=== PATIENT | female | born 1945 | race Caucasian/White ===

== ENCOUNTER → 2017-09-08 | Outpatient (CLI) | payer MEDICARE, OTHER ==
[~2017-09-08] MED LIST: B CO1CAP4 PO; CITA10TA68 PO; DSS100 PO; DULO20CA30 PO; FOLI1 PO; GABA-531 PO; LEVO50 PO; OMEP20 PO; SEVEC800 PO; [UNRECOGNIZED DRUG - CODE] SQ
== END | disposition home or self-care (01) ==
LOC: LABPV 13:08
PROVIDERS: ATTEND Physical Medicine & Rehabilitation
DX: I12.0 Hypertensive chronic kidney disease with stage 5 chronic kidney disease or end stage renal disease (principal); N18.6 End stage renal disease; Z79.891 Long term (current) use of opiate analgesic
CPT/HCPCS: 80307

== ENCOUNTER 2018-09-05 13:50 | Inpatient (IN) | payer MEDICARE, MEDICAID ==
[~2018-09-05] VITALS: Ht 162.6 cm; Wt 59.9 kg
[2018-09-05] MEDS ORDERED: PARO10TA89 PO (14:08)
[2018-09-05] MEDS ORDERED: HYDR2 PO (14:08)
[2018-09-05] MEDS ORDERED: Fentanyl Patch (14:08)
[2018-09-05] MEDS ORDERED: LANT500 PO (14:08)
[2018-09-05] MEDS ORDERED: LEVO100 PO (14:08)
[2018-09-05 14:57] LABS: EOSINOPHILS % (AUTO) 1.2 % (1.0-6.0); HEMATOCRIT 34.8 % (36-46); HEMOGLOBIN 11.5 g/dL (12.0-16.0); LYMPHOCYTES # (AUTO) 0.8 K/uL (1.0-4.8); LYMPHOCYTES % (AUTO) 22.3 % (22.0-44.0); MEAN CORPUSCULAR HEMOGLOBIN 31.2 pg (26.0-34.0); MEAN CORPUSCULAR HGB CONC 33.1 G/dL (31.0-37.0); MEAN CORPUSCULAR VOLUME 94 fL (80-100); MONOCYTES # (AUTO) 0.3 K/uL (0.1-1.0); MONOCYTES % (AUTO) 9.6 % (2.0-9.0); NEUTROPHILS # (AUTO) 2.3 K/uL (1.8-7.7); NEUTROPHILS % (AUTO) 65.9 % (40.0-70.0); PLATELET COUNT (AUTO) 136 K/uL (150-450); RED CELL DISTRIBUTION WIDTH 15.1 % (11.5-14.5)
[2018-09-05 15:08] LABS: ANION GAP 9 mmol/L (8-16); CALCIUM, TOTAL 9.9 mg/dL (8.8-10.5); CARBON DIOXIDE 31 mmol/L (22-29); CHLORIDE 100 mmol/L (98-107); CREATININE 4.01 mg/dL (0.60-1.30); GLOMERULAR FILTR. RATE CALC 11 mL/min (>60); GLUCOSE,RANDOM 149 mg/dL (70-110); SODIUM SERUM 140 mmol/L (136-145); UREA NITROGEN, BLOOD 14 mg/dL (7-18)
[2018-09-05 15:13] LABS: ALANINE AMINOTRANSFERASE 15 U/L (12-78); ALBUMIN 3.5 g/dL (3.4-5.0); ALKALINE PHOSPHATASE 70 U/L (46-116); ASPARTATE AMINOTRANSFERASE 23 U/L (15-37); BILIRUBIN,TOTAL 0.5 mg/dL (0.1-1.0); TOTAL PROTEIN, SERUM 6.8 g/dL (6.4-8.2)
[2018-09-05 15:43] LABS: PLATELET MORPHOLOGY COMMENT DECREASED
[2018-09-05] MEDS ORDERED: HALOPERIDOL 5 MG TABLET PO PRN (17:00)
[2018-09-05] MEDS: PARoxetine HCL 20 MG TABLET PO SCH (22:16)
[2018-09-06] MEDS: ZOLPIDEM TARTRATE 10 MG TABLET PO PRN ×2 (00:56→21:00)
[2018-09-06 01:00] VITALS: BP 157/67
[2018-09-06] MEDS ORDERED: CloNIDine HCL 0.1 MG TABLET PO PRN (06:45)
[2018-09-06] MEDS ORDERED: GuaiFENesin/D-METHORPHAN [SUGAR-FREE] 200-20MG/10 ML SYRUP UDCUP PO PRN (06:45)
[2018-09-06] MEDS ORDERED: ACETAMINOPHEN 325 MG TABLET PO PRN (06:45)
[2018-09-06] MEDS ORDERED: PETROLATUM,WHITE 71 GM JELLY TP PRN (06:45)
[2018-09-06] MEDS ORDERED: ONDANSETRON HCL 4 MG TABLET PO PRN (06:45)
[2018-09-06] MEDS ORDERED: NICOTINE 14 MG/24 HOUR PATCH TD PRN (06:45)
[2018-09-06] MEDS ORDERED: ALBUTEROL SULFATE HFA 90 MCG/PUFF 8 GM INHALER IH PRN (06:45)
[2018-09-06] MEDS ORDERED: LOPERAMIDE HCL 2 MG CAPSULE PO PRN (06:45)
[2018-09-06] MEDS ORDERED: MAGNESIUM HYDROXIDE SUSPENSION 30 ML UDCUP PO PRN (06:45)
[2018-09-06] MEDS ORDERED: MAG HYDROX/AL HYDROX/SIMETH ES 30 ML SUSPENSION UDCUP PO PRN (06:45)
[2018-09-06] MEDS: OMEPRAZOLE 20 MG CAPSULE PO SCH (09:07)
[2018-09-06] MEDS: LANTHANUM CARBONATE 500 MG CHEW TABLET PO SCH ×3 (09:08→16:39)
[2018-09-06 09:19] VITALS: BP 151/77
[2018-09-06 15:47] VITALS: BP 139/60
[2018-09-06] MEDS: IBUPROFEN 400 MG TABLET PO PRN (15:47)
[2018-09-06] MEDS: VITAMIN B COMP/VIT C/FOLIC ACID CAPSULE PO SCH (16:38)
[2018-09-06 17:00] VITALS: BP 139/60
[2018-09-06] MEDS: PARoxetine HCL 20 MG TABLET PO SCH (20:12)
[2018-09-07 00:04] VITALS: BP 129/73
[2018-09-07] MEDS: LORazepam 2 MG TABLET PO PRN ×3 (00:17→22:16)
[2018-09-07 06:48] LABS: BASOPHILS % (AUTO) 0.7 % (0.0-2.0); EOSINOPHILS % (AUTO) 3.1 % (1.0-6.0); HEMOGLOBIN 11.8 g/dL (12.0-16.0); LYMPHOCYTES # (AUTO) 1.4 K/uL (1.0-4.8); LYMPHOCYTES % (AUTO) 37.3 % (22.0-44.0); MEAN CORPUSCULAR HEMOGLOBIN 31.7 pg (26.0-34.0); MEAN CORPUSCULAR HGB CONC 33.8 G/dL (31.0-37.0); MEAN CORPUSCULAR VOLUME 94 fL (80-100); MONOCYTES # (AUTO) 0.5 K/uL (0.1-1.0); MONOCYTES % (AUTO) 13.2 % (2.0-9.0); NEUTROPHILS # (AUTO) 1.7 K/uL (1.8-7.7); NEUTROPHILS % (AUTO) 45.7 % (40.0-70.0); PLATELET COUNT (AUTO) 129 K/uL (150-450); RED BLOOD CELL COUNT(AUTO) 3.74 MIL/uL (4.00-5.20)
[2018-09-07 07:12] LABS: HEMOGLOBIN A1C 5.3 % (4.5-6.2)
[2018-09-07] MEDS: LEVOTHYROXINE SODIUM 100 MCG TABLET PO SCH (07:14)
[2018-09-07] MEDS: LANTHANUM CARBONATE 500 MG CHEW TABLET PO SCH ×3 (07:17→16:47)
[2018-09-07 07:21] LABS: ALBUMIN 3.3 g/dL (3.4-5.0); BILIRUBIN,TOTAL 0.5 mg/dL (0.1-1.0); CALCIUM, TOTAL 9.6 mg/dL (8.8-10.5); CHOL/HDL RATIO 1.9 (3.9-5.7); CREATININE 3.58 mg/dL (0.60-1.30); POTASSIUM 3.7 mmol/L (3.5-5.1); THYROID STIMULATING HORMONE 0.82 uIU/mL (0.36-3.74); TOTAL PROTEIN, SERUM 6.3 g/dL (6.4-8.2)
[2018-09-07] MEDS: VITAMIN B COMP/VIT C/FOLIC ACID CAPSULE PO SCH (08:34)
[2018-09-07] MEDS: OMEPRAZOLE 20 MG CAPSULE PO SCH (08:34)
[2018-09-07 08:49] VITALS: BP 154/75
[2018-09-07] MEDS ORDERED: VITAMIN B COMP/VIT C/FOLIC ACID CAPSULE PO SCH (09:00)
[2018-09-07 16:45] VITALS: BP 135/77
[2018-09-07] MEDS: FentaNYL 25 MCG/HOUR PATCH TD SCH (18:00)
[2018-09-07 20:19] VITALS: BP 118/53
[2018-09-07] MEDS: HYDROmorphone HCL 2 MG TABLET PO PRN (20:20)
[2018-09-07] MEDS: PARoxetine HCL 20 MG TABLET PO SCH (20:24)
[2018-09-08] VITALS (7 sets, daily range): BP systolic 93–124; BP diastolic 49–85
[2018-09-08] MEDS: ZOLPIDEM TARTRATE 10 MG TABLET PO PRN ×2 (00:21→22:52)
[2018-09-08] MEDS: LORazepam 2 MG TABLET PO PRN ×2 (05:39→12:52)
[2018-09-08] MEDS: LANTHANUM CARBONATE 500 MG CHEW TABLET PO SCH ×3 (09:07→17:24)
[2018-09-08] MEDS: OMEPRAZOLE 20 MG CAPSULE PO SCH (09:07)
[2018-09-08] MEDS: VITAMIN B COMP/VIT C/FOLIC ACID CAPSULE PO SCH (09:07)
[2018-09-08] MEDS: LEVOTHYROXINE SODIUM 100 MCG TABLET PO SCH (09:07)
[2018-09-08] MEDS: HYDROmorphone HCL 2 MG TABLET PO PRN ×2 (09:32→20:12)
[2018-09-08] MEDS: PARoxetine HCL 20 MG TABLET PO SCH (20:06)
[2018-09-09] MEDS: LORazepam 2 MG TABLET PO PRN ×2 (00:21→11:06)
[2018-09-09 00:24] VITALS: BP 102/58
[2018-09-09] MEDS: LEVOTHYROXINE SODIUM 100 MCG TABLET PO SCH (07:03)
[2018-09-09] MEDS: LANTHANUM CARBONATE 500 MG CHEW TABLET PO SCH ×3 (07:04→16:39)
[2018-09-09 08:16] VITALS: BP 106/50
[2018-09-09] MEDS: OMEPRAZOLE 20 MG CAPSULE PO SCH (09:18)
[2018-09-09] MEDS: VITAMIN B COMP/VIT C/FOLIC ACID CAPSULE PO SCH (09:18)
[2018-09-09 10:45] VITALS: BP 112/58
[2018-09-09] MEDS: HYDROmorphone HCL 2 MG TABLET PO PRN ×2 (10:49→19:13)
[2018-09-09 11:53] VITALS: BP 104/54
[2018-09-09 16:04] VITALS: BP 96/59
[2018-09-09 19:10] VITALS: BP 111/65
[2018-09-09] MEDS: PARoxetine HCL 20 MG TABLET PO SCH (20:15)
[2018-09-09] MEDS: ZOLPIDEM TARTRATE 10 MG TABLET PO PRN (22:02)
[2018-09-10 00:20] VITALS: BP 138/70
[2018-09-10] MEDS: LORazepam 2 MG TABLET PO PRN ×2 (00:34→14:21)
[2018-09-10] MEDS: LANTHANUM CARBONATE 500 MG CHEW TABLET PO SCH ×3 (07:32→17:53)
[2018-09-10] MEDS: LEVOTHYROXINE SODIUM 100 MCG TABLET PO SCH (07:33)
[2018-09-10] MEDS: VITAMIN B COMP/VIT C/FOLIC ACID CAPSULE PO SCH (08:43)
[2018-09-10] MEDS: OMEPRAZOLE 20 MG CAPSULE PO SCH (08:43)
[2018-09-10 08:54] LABS: CALCIUM, TOTAL 9.2 mg/dL (8.8-10.5); CREATININE 5.12 mg/dL (0.60-1.30); PHOSPHORUS 4.7 mg/dL (2.5-4.9); POTASSIUM 4.2 mmol/L (3.5-5.1)
[2018-09-10 11:08] VITALS: BP 116/62
[2018-09-10] MEDS: HYDROmorphone HCL 2 MG TABLET PO PRN ×2 (11:08→23:45)
[2018-09-10] MEDS: DOCUSATE SODIUM 100 MG CAPSULE PO PRN (14:21)
[2018-09-10] MEDS ORDERED: FENT1PAT25 TD (15:33)
[2018-09-10] MEDS: FentaNYL 25 MCG/HOUR PATCH TD SCH (17:58)
[2018-09-10] MEDS: PARoxetine HCL 20 MG TABLET PO SCH (20:28)
[2018-09-10] MEDS: ZOLPIDEM TARTRATE 10 MG TABLET PO PRN (20:42)
[2018-09-10 22:07] VITALS: BP 108/50
[2018-09-10 23:45] VITALS: BP 135/61
[2018-09-11] MEDS: LORazepam 2 MG TABLET PO PRN ×3 (02:41→22:32)
[2018-09-11 02:42] VITALS: BP 128/68
[2018-09-11] MEDS: LANTHANUM CARBONATE 500 MG CHEW TABLET PO SCH ×3 (07:07→18:15)
[2018-09-11] MEDS: LEVOTHYROXINE SODIUM 100 MCG TABLET PO SCH (07:07)
[2018-09-11] MEDS: VITAMIN B COMP/VIT C/FOLIC ACID CAPSULE PO SCH (08:48)
[2018-09-11] MEDS: OMEPRAZOLE 20 MG CAPSULE PO SCH (08:48)
[2018-09-11 08:53] VITALS: BP_SYST 118; BP_SYST 124; BP_DIAS 68; BP_DIAS 72
[2018-09-11] MEDS: HYDROmorphone HCL 2 MG TABLET PO PRN (08:53)
[2018-09-11 16:26] VITALS: BP 120/60
[2018-09-11] MEDS: PARoxetine HCL 20 MG TABLET PO SCH (20:08)
[2018-09-11] MEDS: ZOLPIDEM TARTRATE 10 MG TABLET PO PRN (20:43)
[2018-09-12 01:21] VITALS: BP 131/65
[2018-09-12] MEDS: HYDROmorphone HCL 2 MG TABLET PO PRN (01:21)
[2018-09-12] MEDS: LEVOTHYROXINE SODIUM 100 MCG TABLET PO SCH (07:02)
[2018-09-12] MEDS: DOCUSATE SODIUM 100 MG CAPSULE PO PRN (07:02)
[2018-09-12] MEDS: LANTHANUM CARBONATE 500 MG CHEW TABLET PO SCH ×3 (07:03→16:36)
[2018-09-12] MEDS: OMEPRAZOLE 20 MG CAPSULE PO SCH (08:00)
[2018-09-12] MEDS: VITAMIN B COMP/VIT C/FOLIC ACID CAPSULE PO SCH (08:00)
[2018-09-12 08:44] VITALS: BP 145/76
[2018-09-12] MEDS: LORazepam 2 MG TABLET PO PRN ×2 (12:12→20:43)
[2018-09-12] MEDS ORDERED: MAGNESIUM CITRATE 300 ML ORAL SOLUTION PO ONE (13:45)
[2018-09-12 16:30] VITALS: BP 122/68
[2018-09-12] MEDS: PARoxetine HCL 20 MG TABLET PO SCH (20:22)
[2018-09-13 00:02] VITALS: BP 121/69
[2018-09-13] MEDS: HYDROmorphone HCL 2 MG TABLET PO PRN ×2 (00:06→14:10)
[2018-09-13] MEDS: LEVOTHYROXINE SODIUM 100 MCG TABLET PO SCH (06:54)
[2018-09-13] MEDS: LANTHANUM CARBONATE 500 MG CHEW TABLET PO SCH ×3 (07:03→17:43)
[2018-09-13] MEDS: OMEPRAZOLE 20 MG CAPSULE PO SCH (08:21)
[2018-09-13] MEDS: VITAMIN B COMP/VIT C/FOLIC ACID CAPSULE PO SCH (08:21)
[2018-09-13 14:10] VITALS: BP 113/64
[2018-09-13 15:10] VITALS: BP 115/63
[2018-09-13 17:20] VITALS: BP 115/64
[2018-09-13] MEDS: LORazepam 2 MG TABLET PO PRN ×2 (18:35→23:51)
[2018-09-13] MEDS: FentaNYL 25 MCG/HOUR PATCH TD SCH (19:14)
[2018-09-13] MEDS: PARoxetine HCL 20 MG TABLET PO SCH (21:29)
[2018-09-14 00:36] VITALS: BP 110/54
[2018-09-14 03:24] VITALS: BP 137/70
[2018-09-14] MEDS: HYDROmorphone HCL 2 MG TABLET PO PRN ×2 (03:30→12:36)
[2018-09-14] MEDS: LEVOTHYROXINE SODIUM 100 MCG TABLET PO SCH (07:23)
[2018-09-14] MEDS: LANTHANUM CARBONATE 500 MG CHEW TABLET PO SCH ×3 (07:23→17:42)
[2018-09-14 08:00] VITALS: BP 132/71
[2018-09-14] MEDS: OMEPRAZOLE 20 MG CAPSULE PO SCH (08:04)
[2018-09-14] MEDS: VITAMIN B COMP/VIT C/FOLIC ACID CAPSULE PO SCH (08:05)
[2018-09-14 12:33] VITALS: BP 123/54
[2018-09-14] MEDS ORDERED: FOLI1CAP2 PO (12:37)
[2018-09-14] MEDS: IBUPROFEN 400 MG TABLET PO PRN (17:07)
== END 2018-09-14 18:30 | disposition home or self-care (01) | DRG 885 ==
LOC: EMS 13:51 → 3EX 21:00
PROVIDERS: ADMIT Psychiatry & Neurology Child & Adolescent Psychiatry; ATTEND Psychiatry & Neurology Child & Adolescent Psychiatry
PROC: 5A1D70Z Performance of Urinary Filtration, Intermittent, Less than 6 Hours Per Day (ICD-10-PCS; principal; 2018-09-06)
PROC: 5A1D70Z Performance of Urinary Filtration, Intermittent, Less than 6 Hours Per Day (ICD-10-PCS; 2018-09-08)
PROC: 5A1D70Z Performance of Urinary Filtration, Intermittent, Less than 6 Hours Per Day (ICD-10-PCS; 2018-09-11)
PROC: 5A1D70Z Performance of Urinary Filtration, Intermittent, Less than 6 Hours Per Day (ICD-10-PCS; 2018-09-13)
DX: F33.2 Major depressive disorder, recurrent severe without psychotic features (principal); N18.6 End stage renal disease; R45.851 Suicidal ideations; I12.0 Hypertensive chronic kidney disease with stage 5 chronic kidney disease or end stage renal disease; M19.90 Unspecified osteoarthritis, unspecified site; K21.9 Gastro-esophageal reflux disease without esophagitis; F12.90 Cannabis use, unspecified, uncomplicated; E87.5 Hyperkalemia; E78.5 Hyperlipidemia, unspecified; F19.10 Other psychoactive substance abuse, uncomplicated; E11.22 Type 2 diabetes mellitus with diabetic chronic kidney disease; E03.9 Hypothyroidism, unspecified; D72.819 Decreased white blood cell count, unspecified; D64.9 Anemia, unspecified; E11.42 Type 2 diabetes mellitus with diabetic polyneuropathy; F41.9 Anxiety disorder, unspecified; G89.29 Other chronic pain; Z91.81 History of falling; Z99.2 Dependence on renal dialysis; Z88.1 Allergy status to other antibiotic agents; Z79.899 Other long term (current) drug therapy; Z71.51 Drug abuse counseling and surveillance of drug abuser
CPT/HCPCS: 83036; 84100; 84443; 87081; 87340; G0378; G0480

== ENCOUNTER → 2018-12-05 | Outpatient (CLI) | payer MEDICARE, OTHER ==
[~2018-12-05] MED LIST changes: -B CO1CAP4 PO; -CITA10TA68 PO; -DSS100 PO; -DULO20CA30 PO; -FOLI1 PO; +FOLI1CAP2 PO; -GABA-531 PO; +LANT500T7 PO; +LEVO100 PO; -LEVO50 PO; +PARO10TA89 PO; -SEVEC800 PO; -[UNRECOGNIZED DRUG - CODE] SQ
== END | disposition home or self-care (01) ==
LOC: LABPV 10:42
PROVIDERS: ATTEND Physical Medicine & Rehabilitation
DX: Z79.891 Long term (current) use of opiate analgesic (principal)
CPT/HCPCS: 80307